=== PATIENT | female | born 1980 | race Caucasian/White ===

== ENCOUNTER → 2025-05-21 | Outpatient (CLI) | payer BC ==
[~2025-05-21] MED LIST: ALBU90OI6 INH; ALLERGY PILL PO; HYDR1TAB94 PO; NORETHINDRONE; PSEU120ER PO; VALA500 PO; [UNRECOGNIZED DRUG - OTHER]
== END ==
LOC: LAB SHORT 10:00 → LAB 10:00
PROVIDERS: Family Medicine
DX: Z01.419 Encounter for gynecological examination (general) (routine) without abnormal findings (principal)
CPT/HCPCS: 87624; G0145